=== PATIENT | male | born 1995 | race African-American/Black ===

== ENCOUNTER 2020-10-30 00:09 | Inpatient (IN) | payer OTHER ==
[~2020-10-30] VITALS: Ht 175.3 cm; Wt 79.9 kg
[2020-10-30] MEDS ORDERED: ONDANSETRON HCL 4MG/2ML INJ IV STA (00:26)
[2020-10-30] MEDS ORDERED: KETOROLAC 30MG/ML VIAL IV STA (00:26)
[2020-10-30 01:00] LABS: BASOPHILS % 0.5 % (0.0-2.0); HEMATOCRIT. 52.2 % (42.0-52.0); HEMOGLOBIN. 16.8 g/dL (14.0-18.0); MEAN CORPUSCULAR HEMOGLOBIN 25.3 pg (28.0-32.0); MEAN CORPUSCULAR VOLUME 78.9 fL (80.0-94.0); MEAN PLATELET VOLUME 7.2 fl (7.4-10.4); NEUTROPHILS % 61.5 % (40.0-76.0); PLATELET 235 x1000/uL (130-400); RED BLOOD CELL COUNT 6.62 mill/uL (4.7-6.1); RED CELL DISTRIBUTION WIDTH 14.7 % (11.6-14.6)
[2020-10-30 01:07] LABS: CHLORIDE 109 mEq/L (98-107)
[2020-10-30 02:07] LABS: INR 1.2
[2020-10-30 02:30] LABS: CLARITY URINE CLOUDY (CLEAR); COLOR URINE DARK YELLOW (YELLOW); KETONES URINE TRACE (NEGATIVE); LEUKOCYTE ESTERASE URINE TRACE (NEGATIVE); NITRITE URINE NEGATIVE (NEGATIVE); OCCULT BLOOD URINE TRACE (NEGATIVE); PROTEIN URINE 3+ (NEGATIVE); SPECIFIC GRAVITY URINE 1.028 (1.005-1.030)
[2020-10-30 02:41] LABS: *AMPHETAMINES SCREEN URINE NEGATIVE (NEGATIVE); *BARBITURATES SCREEN URINE NEGATIVE (NEGATIVE); *BENZODIAZEPINES SCREEN URINE NEGATIVE (NEGATIVE); *COCAINE SCREEN URINE NEGATIVE (NEGATIVE)
[2020-10-30 02:42] LABS: CANNABINOID URINE SCREEN NEGATIVE (NEGATIVE); METHADONE URINE SCREEN NEGATIVE (NEGATIVE); OPIATES URINE SCREEN NEGATIVE (NEGATIVE); PHENCYCLIDINE URINE SCREEN NEGATIVE (NEGATIVE)
[2020-10-30] MEDS ORDERED: SODIUM CHLORIDE 0.9% 1,000 ML IV ONE (03:45)
[2020-10-30 04:18] LABS: CHLORIDE 107 mEq/L (98-107)
[2020-10-30] MEDS ORDERED: INSULIN REGULAR (HUMULIN R) 300UNITS/3ML VIAL IV SCH (05:00)
[2020-10-30] MEDS ORDERED: CALCIUM CHLORIDE 1GM/10ML SYR IV SCH (05:00)
[2020-10-30] MEDS ORDERED: CEFTRIAXONE 1 G PREMIX 50 ML IV SCH (05:00)
[2020-10-30] MEDS ORDERED: DEXTROSE 50% WATER 50ML SYRINGE IV SCH (05:00)
[2020-10-30] MEDS ORDERED: SODIUM BICARBONATE 8.4% 1 MEQ/ML 50ML SYR IV SCH (05:00)
[2020-10-30] MEDS ORDERED: IOHEXOL-300 100 ML BOTTLE ONE (05:27)
[2020-10-30] MEDS ORDERED: ACETAMINOPHEN 325MG TABLET PO PRN (07:00)
[2020-10-30] MEDS ORDERED: MAGNESIUM/ALUMINUM HYDROXIDE/SIMETHICONE 30ML UDC PO PRN (07:00)
[2020-10-30] MEDS ORDERED: CLONIDINE 0.1MG TABLET PO PRN (07:00)
[2020-10-30] MEDS ORDERED: HYDROMORPHONE HCL/PF 2MG/ML CPJ IV PRN (07:00)
[2020-10-30] MEDS ORDERED: LEVOFLOXACIN 500MG PREMIX 100 ML IV SCH (08:00)
[2020-10-30] MEDS ORDERED: PANTOPRAZOLE SODIUM 40 MG/VIAL IV SCH (08:00)
[2020-10-30 09:00] VITALS: BP 110/68
[2020-10-30] MEDS ORDERED: METRONIDAZOLE 500 MG PREMIX 100 ML IV SCH (09:00)
[2020-10-30 10:00] VITALS: BP 110/68
[2020-10-30] MEDS ORDERED: SODIUM POLYSTYRENE SULFONATE 15 G/60 ML BOT PO NR ×2 (10:00→12:00)
[2020-10-30 12:00] VITALS: BP 131/71
[2020-10-30] MEDS: DEXT 5%/0.45% NACL 1000ML 1,000 ML IV SCH ×2 (13:08→21:58)
[2020-10-30] MEDS: LEVOFLOXACIN 500MG PREMIX 100 ML IV SCH (13:09)
[2020-10-30] MEDS: METRONIDAZOLE 500 MG PREMIX 100 ML IV SCH ×2 (15:53→21:57)
[2020-10-30 16:00] VITALS: BP 107/69
[2020-10-30 20:00] VITALS: BP 107/69
[2020-10-30] MEDS: ONDANSETRON HCL 4MG/2ML INJ IV PRN (21:58)
[2020-10-31 00:29] VITALS: BP 97/70
[2020-10-31] MEDS: ONDANSETRON HCL 4MG/2ML INJ IV PRN ×3 (03:59→16:33)
[2020-10-31 04:00] VITALS: BP 106/76
[2020-10-31] MEDS: METRONIDAZOLE 500 MG PREMIX 100 ML IV SCH ×3 (05:53→21:51)
[2020-10-31 06:53] LABS: BASOPHILS % 0.5 % (0.0-2.0); HEMATOCRIT. 44.2 % (42.0-52.0); HEMOGLOBIN. 14.1 g/dL (14.0-18.0); LYMPHOCYTES % 30.9 % (20.0-50.0); MEAN CORPUSCULAR HEMOGLOBIN 25.2 pg (28.0-32.0); MEAN CORPUSCULAR VOLUME 78.8 fL (80.0-94.0); MEAN PLATELET VOLUME 7.4 fl (7.4-10.4); NEUTROPHILS % 60.6 % (40.0-76.0); PLATELET 219 x1000/uL (130-400); RED BLOOD CELL COUNT 5.61 mill/uL (4.7-6.1); RED CELL DISTRIBUTION WIDTH 14.6 % (11.6-14.6)
[2020-10-31 07:08] LABS: CHLORIDE 111 mEq/L (98-107)
[2020-10-31] MEDS ORDERED: MIDODRINE HCL 2.5MG TABLET PO SCH (09:15)
[2020-10-31] MEDS: SODIUM CHLORIDE 0.9% 1,000 ML IV SCH ×2 (10:25→18:56)
[2020-10-31 11:20] VITALS: BP 110/62
[2020-10-31] MEDS: MIDODRINE HCL 2.5MG TABLET PO SCH ×3 (11:59→16:27)
[2020-10-31] MEDS: LEVOFLOXACIN 500MG PREMIX 100 ML IV SCH (12:32)
[2020-10-31] MEDS: METOCLOPRAMIDE HCL 10MG/2ML VIAL IV PRN ×2 (12:56→18:56)
[2020-10-31 16:10] VITALS: BP 99/63
[2020-10-31 20:00] VITALS: BP 117/61
[2020-10-31] MEDS: HYDROCODONE/ACETAMINOPHEN 5/325MG TABLET PO PRN (20:34)
[2020-10-31] MEDS ORDERED: ACETAMINOPHEN 325MG TABLET PO PRN (21:45)
[2020-11-01] VITALS (9 sets, daily range): BP systolic 74–142; BP diastolic 31–110
[2020-11-01] MEDS: HYDROCODONE/ACETAMINOPHEN 5/325MG TABLET PO PRN (02:35)
[2020-11-01] MEDS: METOCLOPRAMIDE HCL 10MG/2ML VIAL IV PRN (02:36)
[2020-11-01] MEDS: METRONIDAZOLE 500 MG PREMIX 100 ML IV SCH (05:40)
[2020-11-01] MEDS: SODIUM CHLORIDE 0.9% 1,000 ML IV SCH (06:15)
[2020-11-01] MEDS ORDERED: ALTEPLASE 100MG/VIAL IV ONE ×2 (06:45→07:30)
[2020-11-01] MEDS ORDERED: EPINEPHRINE 10 MG in SODIUM CHLORIDE 0.9% 250 ML IV PRN (07:15)
[2020-11-01] MEDS ORDERED: DEXTROSE 50% WATER 50ML SYRINGE IV ONE ×2 (07:16→07:46)
[2020-11-01] MEDS ORDERED: *NO ASPIRIN X 24 HOURS XX SCH (07:30)
[2020-11-01] MEDS ORDERED: EPINEPHRINE 0.1MG/ML (1:10,000) 10ML SYR ONE (07:46)
[2020-11-01 08:13] LABS: BASOPHILS % 0.2 % (0.0-2.0); HEMATOCRIT. 54.5 % (42.0-52.0); LYMPHOCYTES % 20.4 % (20.0-50.0); MEAN CORPUSCULAR HEMOGLOBIN 26.2 pg (28.0-32.0); MEAN PLATELET VOLUME 7.3 fl (7.4-10.4); MONOCYTES % 8.9 % (2.0-8.0); NEUTROPHILS % 70.5 % (40.0-76.0); PLATELET 79 x1000/uL (130-400); RED BLOOD CELL COUNT 6.49 mill/uL (4.7-6.1); RED CELL DISTRIBUTION WIDTH 15.1 % (11.6-14.6)
[2020-11-01 08:18] LABS: CHLORIDE 104 mEq/L (98-107)
[2020-11-01 08:53] LABS: HEPATITIS B SURFACE ANTIGEN NEGATIVE
[2020-11-01 09:23] LABS: HEPATITIS A AB IGM NEGATIVE (NEGATIVE)
[2020-11-04 13:06] LABS: ACTIN (SMOOTH MUSCLE) ANTIBODY 5 Units (0-19); MITOCHONDRIAL M2 AB <20.0 Units (0.0-20.0)
[2020-11-05 05:12] LABS: ANTI-NUCLEAR ANTIBODIES DIRECT Negative (Negative)
== END 2020-11-01 14:00 | DRG 682 ==
LOC: ER 00:09 → 6EST 05:49 → EDBEDREQ 05:52 → CANRESERV 07:15 → ENRESERV 07:15 → EDBEDREQSVC 07:59 → ENRESERV 08:26 → 5WST 10-31 10:56
PROVIDERS: ADMIT Hospitalist; ATTEND Hospitalist
PROC: 5A12012 Performance of Cardiac Output, Single, Manual (ICD-10-PCS; principal; 2020-11-01)
PROC: 0BH17EZ Insertion of Endotracheal Airway into Trachea, Via Natural or Artificial Opening (ICD-10-PCS; 2020-11-01)
PROC: 5A1935Z Respiratory Ventilation, Less than 24 Consecutive Hours (ICD-10-PCS; 2020-11-01)
PROC: 3E03317 Introduction of Other Thrombolytic into Peripheral Vein, Percutaneous Approach (ICD-10-PCS; 2020-11-01)
DX: N17.9 Acute kidney failure, unspecified (principal); J96.90 Respiratory failure, unspecified, unspecified whether with hypoxia or hypercapnia; N39.0 Urinary tract infection, site not specified; E87.5 Hyperkalemia; K52.9 Noninfective gastroenteritis and colitis, unspecified; R74.01 Elevation of levels of liver transaminase levels; I49.01 Ventricular fibrillation; I46.9 Cardiac arrest, cause unspecified; I95.1 Orthostatic hypotension; K82.8 Other specified diseases of gallbladder; K81.9 Cholecystitis, unspecified; E83.01 Wilson's disease
CPT/HCPCS: 36415; 74177; 76700; 80048; 80053; 80305; 81003; 82248; 82390; 82962; 83516; 83735; 85025; 86038; 86705; 86709; 86803; 87340; 92950; 93005; 99285; C9113; J0696; J1815; J1885; J1956; J2405; J2765; J2997; J3490; J7030; Q9967